=== PATIENT | male | born 1945 | race Caucasian/White ===

== ENCOUNTER 2022-02-13 15:47 | Emergency (ER) | payer MEDICARE, OTHER, SELFPAY ==
--- NOTE | ~2022-02-13 | XR_ITS ---
EXAMINATION: XR abdomen/kub 1V INDICATION: Kidney stones, flank pain TECHNIQUE: Supine views of the abdomen were obtained on 2 radiographs. COMPARISON: CT from today FINDINGS: Two adjacent stones project in the expected location of the distal left ureter which corres pond to those seen on today's CT scan. There are multiple phleboliths of the pelvis. No definite pal tional urolithiasis is identified. The bowel gas pattern is normal. There is mild atelectasis of the visualized lung bases. IMPRESSION: 1. Two adjacent stones projecting in the expected location of the distal left ureter. Reviewed, dictated and finalized at location A. IMPRESSION: 1. Two adjacent stones projecting in the expected location of the distal left u reter.
--- NOTE | ~2022-02-13 | CT_ITS ---
EXAMINATION: CT abdomen pelvis wo con DATE: 02/13/2022 16:49 INDICATION: Left flank pain. TECHNIQUE: Computed tomography (CT) of the abdomen and pelvis was performed without intravenous contr ast. Automated exposure control and iterative reconstruction technique were employed. The dose-length product was 506.90 mGy-cm. COMPARISON: None. FINDINGS: The visualized portions of the lung bases demonstrate mild atelectasis. No pleural effusion . The heart size is normal. No pericardial effusion. There are cysts in the liver measuring up to 2.2 cm. The gallbladder, spleen, pancreas, and adrenal glands are normal. There is a 3 mm stone in right kidney. There is a 3.9 cm cyst in left kidney. There are three 1 mm stones in left kidney. There is mild left hydronephrosis and hydroureter. There are 4 mm and 3 mm stones in distal left ureter. There are bilateral inguinal hernias containing fat. There are no dilated loops of bowel. The appendix is normal. There are no pathologically enlarged lymph nodes. There is no free intraperitoneal fluid. The re is severe lumbar spondylosis. There is mild chronic anterior wedging of L1 vertebral body. IMPRESSION: 1. 4 mm and 3 mm stones in distal left ureter with mild left hydronephrosis and hydroureter. 2. Small nonobstructing bilateral kidney stones. Reviewed, dictated and finalized at location B. IMPRESSION: 1. 4 mm and 3 mm stones in distal left ureter with mild left hydronephrosis an d hydroureter. 2. Small nonobstructing bilateral kidney stones.
[2022-02-13 16:11] VITALS: BP 165/80; PULSE 79; RESP 16; TEMP 36.6; O2SAT 98
[2022-02-13 16:21] LABS: Basophils Percent Auto 0.2 % (0.2-1.2); Eosinophils Percent Auto 0.1 % (0-4.4); Hematocrit 43.9 % (42.0-52.0); Hemoglobin 15.2 g/dL (14.0-18.0); Immature Granulocyte Absolute 0.05 K/mm3 (0.00-0.031); Immature Granulocyte Percent A 0.3 % (0-0.5); Lymphocytes Absolute Auto 1.13 K/mm3 (0.9-3.2); Lymphocytes Percent Auto 7.8 % (18.3-44.2); Mean Corpuscular HGB Conc 34.6 g/dl (32-36); Mean Corpuscular Hemoglobin 32.5 pg (26-34); Mean Platelet Volume 10.1 fl (7.4-10.4); Monocytes Percent Auto 6.8 % (2.6-8.5); Neutrophils Absolute Auto 12.4 K/mm3 (1.3-6.7); Neutrophils Percent Auto 84.8 % (45.5-73.1); Platelet Count Result 234 k/mm3 (150-375); Red Blood Count 4.67 M/mm3 (4.6-6.20); Red Cell Distribution Width 13.5 % (11.5-14.5); White Blood Count 14.6 K/mm3 (4.5-10.0)
[2022-02-13 16:31] LABS: Alanine Aminotransferase 31 U/L (4-50); Albumin Level 4.4 g/dL (3.5-5.1); Alkaline Phosphatase 58 U/L (38-126); Anion Gap 10 mmol/L (8-16); Aspartate Amino Transferase 34 U/L (17-59); Bilirubin,Total 0.7 mg/dL (0.2-1.3); Blood Urea Nitrogen 12 mg/dL (9-20); Calcium 9.3 mg/dL (8.4-10.2); Carbon Dioxide 21 mmol/L (22-30); Chloride 111 mmol/L (98-107); Estimated CRCL calculation 50 ml/min; Estimated Glomerular Filt Rate 54; Glucose 168 mg/dL (65-110); Sodium 142 mmol/L (137-145)
[2022-02-13] MEDS: SODIUM CHLORIDE 0.9% IV 1,000 ML 999 ML IV CONT (16:38)
[2022-02-13 16:39] LABS: Appearance Urine Slightly Cloudy (Clear); Bilirubin Urine Negative (Negative); Blood Urine 3+ (Negative); Color Urine Yellow (Yellow); Glucose Urine UA Negative (Negative); Ketones Urine Negative (Negative); Leukocyte Esterase Ur Negative LEU/UL (Negative); Nitrate Urine Negative (Negative); Protein Urine Trace mg/dL (Negative); Specific Grav Ur >= 1.030 (1.001-1.035); Urobilinogen Urine 0.2 mg/dL (<2.0)
[2022-02-13] MEDS: ONDANSETRON INJ 4 MG/2 ML VIAL IV PUSH (16:40)
[2022-02-13] MEDS: MORPHINE SULFATE (*CRX) 4 MG/ML INJ IV PUSH (16:42)
[2022-02-13 16:49] LABS: Mucus Urine Rare /lpf; RBC Urine 51-75 /hpf (0-2); Squamous Epithelial Cell Urine Rare /hpf (Few)
[2022-02-13 16:50] LABS: Add Urine Microscopic? YES
[2022-02-13 17:19] VITALS: BP 157/89; PULSE 58; RESP 15; O2SAT 98
--- NOTE | 2022-02-13 17:19 | PC.NURSE ---
Pt to XRAY via stretcher at this time, fluids infusing.
[2022-02-13] MEDS: KETOROLAC 15 MG/ML VIAL (*BKC) IV PUSH (17:35)
[2022-02-13] MEDS: TAMSULOSIN HCL 0.4 MG CAPSULE PO (17:35)
--- NOTE | 2022-02-13 18:13 | ED.ABDPAIN ---
HPI - Abdominal Pain General Chief Complaint: Abdominal Pain Stated Complaint: Left Flank Pain Time Seen by Provider: 02/13/22 16:22 Source: RN notes reviewed History of Present Illness HPI narrative: Patient presents emergency room from home for left flank and abdominal pain. Patient states pain began this morning progressively worsening pain is located left flank transfer left side the abdomen described as sharp and stabbing. States been associate with nausea vomiting. He denies any fevers or chills chest pain shortness of breath diarrhea or any other symptoms. States he does have a history of kidney stones before in the past Related Data Home Medications Medication Instructions Recorded Confirmed multivitamin 3 tablet PO DAILY tablet 05/31/21 05/31/21 omega-3 acid ethyl esters 1 gram 2 cap PO DAILY cap 05/31/21 05/31/21 capsule Allergies Allergy/AdvReac Type Severity Reaction Status Date / Time iodine Allergy Unknown Swelling Verified 02/13/22 16:33 Review of Systems Review of Systems: Gen.: Denies fevers or chills ENT: Denies congestion Respiratory: Denies shortness of breath or cough CV: Denies chest pain or palpitations GI: See HPI denies burning, urgency, frequency or hematuria Musculoskeletal: Denies back pain or muscle pain Neuro: Denies numbness, tingling, weakness or focal weakness Skin: Denies rash Except as documented, all other systems reviewed and negative [facility] Past Medical History Medical History (Updated 02/13/22 @ 18:14 by Víctor Pineda DO) Kidney stone Family History Family History (Updated 05/30/21 @ 13:48 by Evelyn Malik CMA) Father Heart disease Other Diabetes mellitus Family history of arthritis Family history of malignant neoplasm Social History Social History Smoking status: Current some day smoker Tobacco type: cigarettes Smoking end date: 10/15/04 Alcohol intake: current Drinks per week: 1 Exam Narrative: APPEARANCE: No acute distress, nontoxic, resting in bed HEENT: Normocephalic, atraumatic, OMM RESPIRATORY: No respiratory distress, clear to auscultation bilaterally with no rhonchi wheezing or rales CARDIOVASCULAR: RRR s murmur ABDOMINAL: Soft nondistended tender palpation left upper quadrant left lower quadrant no tenderness right upper quadrant right lower quadrant no rebound or guarding, left flank tenderness MUSCULOSKELETAl: Moves all extremities. No clubbing, cyanosis or edema. NEURO: Awake and alert. Following commands, speech normal, no focal deficits SKIN:: Warm, dry. Normal Color PSYCHIATRIC: Normal affect/mood Course Course Emergency Course: Patient states he is feeling much better at this time Discussed Dr. Dumas agrees with plan for home with [facility] with follow-up as an outpatient Discussed with patient results of workup and diagnosis. Discussed need for follow-up with primary care, proper use of medication, and reasons to return to the emergency department. Patient understands and agrees to current treatment plan Vital Signs Vital signs: Vital Signs Temperature 97.8 F 02/13/22 16:11 Pulse Rate 79 02/13/22 16:11 Respiratory Rate 16 02/13/22 16:11 Blood Pressure 165/80 H 02/13/22 16:11 Pulse Oximetry 98 02/13/22 16:11 Temperature 97.8 F 02/13/22 16:11 Pulse Rate 58 L 02/13/22 17:19 Respiratory Rate 15 02/13/22 17:19 Blood Pressure 157/89 H 02/13/22 17:19 Pulse Oximetry 98 02/13/22 17:19 MDM - Abdominal Pain Lab Data Result diagrams: 02/13/22 16:15 02/13/22 16:15 Labs: Lab Results 02/13/22 02/13/22 02/13/22 Range/Units 16:15 16:15 16:32 WBC 14.6 H (4.5-10.0) K/mm3 RBC 4.67 (4.6-6.20) M/mm3 Hgb 15.2 (14.0-18.0) g/dL Hct 43.9 (42.0-52.0) % MCV 94.0 (80-100) fl MCH 32.5 (26-34) pg MCHC 34.6 (32-36) g/dl RDW 13.5 (11.5-14.5) % Plt Count 234
[2022-02-13 18:22] VITALS: BP 134/78; PULSE 61; RESP 15; O2SAT 99
== END 2022-02-13 18:29 | disposition home or self-care (01) ==
PROVIDERS: Emergency Provider Emergency Medicine; PCP Family Medicine
DX: N13.2 Hydronephrosis with renal and ureteral calculous obstruction (principal); Z87.442 Personal history of urinary calculi; Z87.891 Personal history of nicotine dependence
CPT/HCPCS: 36415; 74018; 74176; 80053; 81001; 85025; 96361; 96374; 96375; 99284; A9270; J1885; J2270; J2405; J7030

== ENCOUNTER 2022-02-18 07:31 | Outpatient (CLI) | payer MEDICARE, OTHER, SELFPAY | END 2022-02-18 07:32 | disposition home or self-care (01) | LOC: ANHLAB 07:34 | PROVIDERS: PCP Family Medicine; Visit Provider Urology | DX: N20.0 Calculus of kidney (principal); Z01.818 Encounter for other preprocedural examination | CPT/HCPCS: 87086 ==

== ENCOUNTER 2022-02-21 00:13 | Day surgery (SDC) | payer MEDICARE, OTHER, SELFPAY ==
--- NOTE | 2022-02-17 12:31 | PC.NURSE ---
Report to the Outpatient Waiting Room, entrance under the green pavilion located off [facility], at time _1100 on date 02/21/22 . OR Time: _1:00 PM . - You and your visitor will be asked a series of questions to screen for COVID 19 for your protection. - Only one visitor is allowed at this time. - The patient visitor is requested to leave or wait in car when not with patient. - A mask is required within the hospital. Patients may have clear liquids (water, carbonated beverages, clear teas, apple juice) until 3 hours prior to surgery with a maximum of 20 ounces. - No food from midnight until time of surgery - Infants may have breast milk until 4 hours before surgery, formula 6 hours prior to surgery. - Children will be allowed to drink immediately following surgery. If applicable, please bring a bottle or sippy cup to assist with drinking. Juice, water, soda, and popsicles are readily available. For infants on formula, please bring formula the day of surgery. Pacifiers are allowed. Take the following medications with a SIP of water the morning of surgery: ____NONE Medications to discontinue per physician _PT STATES ALL VITAMINS AND SUPPLEMENTS 7 DAYS PRE OP PER DR ESTRELLA Date to take last dose____02/13/22 Please no make-up, nail lao, hairspray, perfume, deodorant, or body powder the day of surgery. No jewelry (including any body piercings) or valuables the day of surgery, leave them at home. Please take a shower or bath the night before, or the morning of, surgery with an antibacterial soap. Wear comfortable, loose fitting clothing. Children are encouraged to wear pajamas. - Jewelry must be removed prior to entering the operating room. Rings and piercings that are not removed may be cut off. - The hospital will not accept responsibility for valuables. - Please leave all valuables, including medications, at home the day of surgery. If you are going home after surgery, a licensed day haul or farm charter bus driver must drive you home. - NO public transportation without another adult. - We recommend that an adult stay with you for 24 hours following discharge. - We also recommend that you do not drive, make important decision, drink alcoholic beverages, or take any drugs that were not prescribed by your health care provider for at least 24 hours after your discharge time. For Pediatric surgeries, we recommend two adults accompany the child home (only one inside the building at this time). Follow any additional instructions given to you from your surgeon. If you or anyone in your household have experienced Covid symptoms in the past week, please notify your surgeon or the nurse liaison at the phone number below for possible testing. Telephone instructions given to __PATIENT and asked if any additional questions and then verbalized understanding. Patient advised to call surgeon office or pre surgery nurse liaison [phone] if any additional questions.
[2022-02-17 12:36] VITALS: BMI 33.4
[2022-02-21] VITALS (9 sets, daily range): BP systolic 128–159; BP diastolic 67–87; PULSE 74–91; RESP 14–18; TEMP 36.3–37; O2SAT 97–100
--- NOTE | ~2022-02-21 | XR_ITS ---
EXAMINATION: XR retrograde pyelo w/stent LT DATE: 02/21/2022 13:00 CDT INDICATION: LEFT SIDE STONE EXTRACT, RETRO/STENT . TECHNIQUE: 6 fluoroscopic images of the right upper quadrant were obtained during retrograde pyelogra phy with stent placement performed by the surgeon. I was not present in the operating room. Fluorosco py exposure time was 12.2 seconds. Cumulative dose 0.05001 mGym2. COMPARISON: None FINDINGS: Fluoroscopic images demonstrate multiple pelvic phleboliths and degenerative change in the lumbar spi ne. No definite renal calcification identified. Guidewire access to the renal pelvis on the left. Samy nt placement with the proximal and distal ends of the stent appropriately located. IMPRESSION: Postoperative documentation of retrograde pyelography. Reviewed, dictated and finalized at location K.
[2022-02-21] MEDS: LACTATED RINGERS 1,000 ML 30 ML IV CONT (11:29)
--- NOTE | 2022-02-21 11:50 | P.PNAN_ITS ---
Anes - Initial Pre Proc Eval Procedure: Operation Date: 02/21/22 13:00 Proposed Procedures p Cystoscopy, Left Ureteroscopy, Left Retrograde Pyelogram, Stone Extraction, Possible Left Stent Placement, Possible Holmium Laser Procedure - Luis Alberto Rodriguez MD Date/Time: 02/21/22 11:50 Surgeon: Luis Alberto Rodriguez MD Pre Op Diagnosis: left ureteral stone Patient Data Age: 76 Gender: M Height: 1.73 m Weight: 98.4 kg Last Vital Signs Temp 36.3 C L 02/21/22 11:04 Pulse 91 02/21/22 11:04 Resp 16 02/21/22 11:04 BP 143/79 H 02/21/22 11:04 Pulse Ox 98 02/21/22 11:04 Allergies Allergy/AdvReac Type Severity Reaction Status Date / Time Iodinated Contrast Media Allergy Severe Swelling Verified 02/21/22 11:22 Home Medications Medication Instructions Recorded Confirmed Type multivitamin 3 tablet PO DAILY tablet 05/31/21 02/21/22 History omega-3 acid ethyl esters 1 gram 2 cap PO DAILY cap 05/31/21 02/21/22 History capsule hydrocodone-acetaminophen 1 tablet PO Q4H PRN #14 tablet 02/13/22 02/21/22 Rx ondansetron 4 mg PO Q6H PRN #10 tablet 02/13/22 02/21/22 Rx tamsulosin [Flomax] 0.4 mg PO DAILY #5 cap 02/13/22 02/21/22 Rx ascorbic acid (vitamin C) 500 mg PO DAILY 02/17/22 02/21/22 History cholecalciferol (vitamin D3) 50 mcg PO DAILY 02/17/22 02/21/22 History cyanocobalamin (vitamin B-12) 1,000 mcg PO DAILY 02/17/22 02/21/22 History tramadol 50 mg PO PRN 02/21/22 02/21/22 History Patient hx anesthesia problems: none Family hx anesthesia problems: none Results Review: All pre-operative results and documents have been reviewed as part of the pre-operative evaluation. FORMERLY [facility], [facility] Past Medical History Medical History (Updated 02/21/22 @ 11:50 by Andre Garcia MD) Kidney stone Obesity Surgical History Surgical History (Updated 02/21/22 @ 11:51 by Andre Garcia MD) Hx of cystoscopy Family History Family History Father Heart disease Other Diabetes mellitus Family history of arthritis Family history of malignant neoplasm Social History Social History Years smoked: 50 Smoking status: Current some day smoker Tobacco type: cigarettes Smoking end date: 10/15/04 Alcohol intake: current Drinks per week: 1 Living arrangements: with family Spiritual care concerns: No Anes - Eval Final PreProcedure Day of Procedure 02/21/22 11:50 Patient weight: obese Heart: regular rate and rhythm Lungs: clear to auscultation Airway: Mallampati scale class II, special considerations poor dentition and other (loose teeth) Neurological: alert and oriented Last oral intake: >/= 8 hours ASA classification: III Emergent: no Anesthetic plan: proceed Anesthesia type and monitoring: general LMA and standard monitoring Results Review: All pre-operative results and documents have been reviewed as part of the pre-operative evaluation. Informed Consent: The patient's anesthetic plan and its attendant risks including dental injury and tooth loss and benefits were discussed with the patient/family/POA. Questions were solicited and answers provided to the sati sfaction of the patient/family/POA.
--- NOTE | 2022-02-21 12:21 | WPDHPUPDATE1 ---
History and Physical Update Update Date/Time: 02/21/22 12:21 History and Physical has been reviewed, including an updated exam of the patient. There are NO changes in the patient's condition. Risks, benefits, and alternatives have been discussed and questions answered. Patient agrees to proceed with procedure. Proceed with cystoscopy, left retrograde pyelogram, left ureteroscopy with stone extraction, possible holmium laser, stent placement
[2022-02-21] MEDS: ceFAZolin 2 GM/D5W 50 ML 2 GM/50 ML BAG IVPB (12:50)
[2022-02-21] MEDS: LIDOCAINE HCL 2% GEL UROJET 10 ML PKG MUCOUS MEM (13:13)
--- NOTE | 2022-02-21 13:17 | P.OP_ITS ---
Procedure Note - Detailed Date of Procedure 02/21/22 Pre-op Diagnosis left ureteral stone Post-op Diagnosis Same Procedure Performed Cyst cystoscopy, left retrograde pyelogram, left ureteroscopy with stone extraction x2, left ureteral stent placement 4.8 Micronesian contour Surgeon Luis Alberto Rodriguez MD Anesthesia General Findings 2 distal ureteral stones 3 mm and 4 mm Description of Procedure Patient is taken to the operative suite and correctly identified. Once anesthesia was obtained was placed in dorsal lithotomy position and prepped and draped usual sterile fashion. Twenty-two Micronesian scope inserted in the bladder direct vision there were no urethral strictures. Prostate has some lateral lobe hypertrophy. Upon entering the bladder is to 3+ trabeculation noted. No tumors visualized at this time. The left orifice was cannulated with a guidewire. 8/10 dilator was used to dilate the orifice. A rigid ureteral scope was then inserted. Two stones were visualized. Using an escape basket we retrieved the stones and sent them for analysis. Pyelogram was then performed. 4.8 Micronesian contour stent was then placed with the proximal end coiled in the left renal pelvis and the distal in the bladder. 2% viscous lidocaine was inserted into the urethra and patient is taken recovery stable condition. He will follow up in a week's time for stent removal. Drains Yes Packing No Pathology Yes Complications No immediate complications Condition Stable Disposition PACU
[2022-02-21] MEDS: oxyCODONE HCL (*CRX) 5 MG TAB IR PO (14:32)
== END 2022-02-21 14:51 | disposition home or self-care (01) ==
PROVIDERS: PCP Family Medicine; Visit Provider Urology
PROC: (CPT 52352; principal; 2022-02-21 13:00)
DX: N20.1 Calculus of ureter (principal); N40.0 Benign prostatic hyperplasia without lower urinary tract symptoms; N32.89 Other specified disorders of bladder; F17.210 Nicotine dependence, cigarettes, uncomplicated; E66.9 Obesity, unspecified; Z68.33 Body mass index [BMI] 33.0-33.9, adult
CPT/HCPCS: 52352; 52332; 74420; 82365; 88300; A9270; C1758; C1769; C2617; J0690; J2405; J2704; J3010; J7120; Q9966

== ENCOUNTER 2024-09-24 10:29 | Outpatient (CLI) | payer MEDICARE, OTHER, SELFPAY ==
[2024-09-24 12:56] LABS: Basophils Percent Auto 0.3 % (0.2-1.2); Eosinophils Absolute Auto 0.1 K/mm3 (0-0.3); Eosinophils Percent Auto 1.3 % (0-4.4); Hematocrit 47.3 % (42.0-52.0); Hemoglobin 15.6 g/dL (14.0-18.0); Immature Granulocyte Absolute 0.04 K/mm3 (0.00-0.031); Immature Granulocyte Percent A 0.5 % (0-0.5); Lymphocytes Absolute Auto 1.96 K/mm3 (0.9-3.2); Mean Corpuscular Hemoglobin 31.6 pg (26-34); Mean Corpuscular Volume 95.7 fl (80-100); Mean Platelet Volume 10.7 fl (7.4-10.4); Monocytes Absolute Auto 0.6 K/mm3 (0.1-0.6); Monocytes Percent Auto 8.2 % (2.6-8.5); Neutrophils Absolute Auto 4.8 K/mm3 (1.3-6.7); Neutrophils Percent Auto 63.7 % (45.5-73.1); Platelet Count Result 219 k/mm3 (150-375); Red Blood Count 4.94 M/mm3 (4.6-6.20); Red Cell Distribution Width 13.7 % (11.5-14.5); White Blood Count 7.6 K/mm3 (4.5-10.0)
[2024-09-24 13:11] LABS: Vitamin D 25 Hydroxy 40.8 ng/mL
[2024-09-24 13:18] LABS: Alanine Aminotransferase 41 U/L (6-50); Albumin Level 4.4 g/dL (3.5-5.1); Alkaline Phosphatase 87 U/L (38-126); Anion Gap 5 mmol/L (4-12); Aspartate Amino Transferase 70 U/L (17-59); Bilirubin,Total 1.2 mg/dL (0.2-1.3); Blood Urea Nitrogen 17 mg/dL (9-20); Calcium 9.6 mg/dL (8.4-10.2); Carbon Dioxide 28 mmol/L (22-30); Chloride 107 mmol/L (98-107); Cholesterol 195 mg/dL (0-200); Estimated Glomerular Filt Rate > 60; Glucose 97 mg/dL (65-110); HDL Direct 42 mg/dL; Sodium 140 mmol/L (137-145); Triglycerides 108 mg/dL (<150)
[2024-09-24 13:25] LABS: Thyroid Stimulating Hormone Reflex 0.991 uIU/mL (0.465-4.68)
[2024-09-24 13:30] LABS: LDL Cholesterol Direct 111 mg/dL
[2024-09-24 13:49] LABS: Prostate Specific Antigen 2.3 ng/mL (< OR = 4.0)
[2024-09-24 18:16] LABS: Hemoglobin A1C 5.5 % (<5.7)
== END 2024-09-24 10:30 | disposition home or self-care (01) ==
LOC: ANHGOSHLAB 10:31
PROVIDERS: PCP Family Medicine; Visit Provider Family Medicine
DX: R73.9 Hyperglycemia, unspecified (principal); R03.0 Elevated blood-pressure reading, without diagnosis of hypertension; Z00.00 Encounter for general adult medical examination without abnormal findings; E78.5 Hyperlipidemia, unspecified; E53.8 Deficiency of other specified B group vitamins; E55.9 Vitamin D deficiency, unspecified; I10 Essential (primary) hypertension; Z12.5 Encounter for screening for malignant neoplasm of prostate
CPT/HCPCS: 36415; 80053; 80061; 82306; 82607; 83036; 84153; 84443; 85025; G0103

== ENCOUNTER 2024-09-24 10:38 | Outpatient (CLI) | payer MEDICARE, OTHER, SELFPAY ==
--- NOTE | ~2024-09-24 | XR_ITS ---
Lumbosacral Spine: AP, oblique, and lateral views Clinical History: Pain Findings: The normal lordotic curve is maintained. The vertebral bodies and posterior elements are i ntact. There is moderate degenerative disc changes throughout the lumbar spine. There is severe facet arthropathy throughout the lumbar spine. The sacroiliac joints are normally outlined. Impression: Advanced degenerative spondylosis, as detailed above. Reviewed, dictated and finalized at location M. PICKLER Impression: Advanced degenerative spondylosis, as detailed above.
--- NOTE | ~2024-09-24 | XR_ITS ---
Right Shoulder Technique: AP and scapular Y views were obtained. Clinical History: Pain Findings: No fracture or dislocation is seen. Osseous alignment is anatomic. The glenohumeral and acr omioclavicular joint spaces are preserved. Soft tissues are unremarkable. Impression: Unremarkable right shoulder radiographs. Reviewed, dictated and finalized at [facility]. ESSOR OF LANGUAGES Impression: Unremarkable right shoulder radiographs.
== END 2024-09-24 10:39 | disposition home or self-care (01) ==
LOC: GOSHIMG 10:39
PROVIDERS: PCP Family Medicine; Visit Provider Family Medicine
DX: M47.896 Other spondylosis, lumbar region (principal); M25.511 Pain in right shoulder
CPT/HCPCS: 72110; 73030

== ENCOUNTER 2024-09-30 10:39 | Outpatient (CLI) | payer MEDICARE, OTHER, SELFPAY ==
--- NOTE | ~2024-09-30 | XR_ITS ---
Left Shoulder Technique: AP and scapular Y views were obtained. Clinical History: Pain Findings: No fracture or dislocation is seen. Osseous alignment is anatomic. The glenohumeral and acr omioclavicular joint spaces are preserved. Soft tissues are unremarkable. Impression: Unremarkable left shoulder radiographs. Reviewed, dictated and finalized at [facility]. FITTER Impression: Unremarkable left shoulder radiographs.
== END 2024-09-30 10:40 | disposition home or self-care (01) ==
LOC: GOSHIMG 10:40
PROVIDERS: PCP Family Medicine; Visit Provider Family Medicine
DX: M25.512 Pain in left shoulder (principal)
CPT/HCPCS: 73030

== ENCOUNTER 2024-10-03 14:54 | Outpatient (CLI) | payer MEDICARE, OTHER, SELFPAY ==
--- NOTE | ~2024-10-03 | CT_ITS ---
EXAMINATION:CT lung screening DATE: 10/03/2024 15:25 INDICATION: Personal history of nicotine dependence. Smoker who quit 14 years ago with 40 pack year h istory. TECHNIQUE: Computed tomography (CT) of the chest was performed without intravenous contrast. Automate d exposure control and iterative reconstruction technique were employed. The dose-length product (DLP ) was 188.98 mGy-cm. COMPARISON: CT abdomen and pelvis 02/13/22 FINDINGS: The lungs demonstrate mild atelectasis. There are subpleural bands in the lower lobes. No p leural effusion. The heart size is normal. There are coronary artery calcifications. No pericardial e ffusion. There is diffuse hepatic steatosis. There is a 2.3 cm cyst in the liver. There is a 5.0 cm c yst in left kidney. There is a 5 mm stone in left kidney. There are cysts mild thoracic spondylosis. There are chronic compression fractures of T6 and T8. IMPRESSION: 1. Lung-RADS category 2: Benign appearance or behavior. Continue annual screening with noncontrast lo w-dose chest CT in 12 months. Reviewed, dictated and finalized at location A. HER IMPRESSION: 1. Lung-RADS category 2: Benign appearance or behavior. Continue annual screeni ng with noncontrast low-dose chest CT in 12 months.
== END 2024-10-03 14:55 | disposition home or self-care (01) ==
PROVIDERS: PCP Family Medicine; Visit Provider Family Medicine
DX: Z12.2 Encounter for screening for malignant neoplasm of respiratory organs (principal); Z87.891 Personal history of nicotine dependence
CPT/HCPCS: 71271

== ENCOUNTER 2024-11-24 09:46 | Outpatient (CLI) | payer MEDICARE, OTHER, SELFPAY ==
[2024-11-24 15:40] LABS: Alanine Aminotransferase 33 U/L (6-50); Albumin Level 4.1 g/dL (3.5-5.1); Alkaline Phosphatase 62 U/L (38-126); Anion Gap 8 mmol/L (4-12); Aspartate Amino Transferase 40 U/L (17-59); Blood Urea Nitrogen 15 mg/dL (9-20); Calcium 9.5 mg/dL (8.4-10.2); Carbon Dioxide 28 mmol/L (22-30); Chloride 106 mmol/L (98-107); Estimated Glomerular Filt Rate > 60; Glucose 90 mg/dL (65-110); Potassium 3.8 mmol/L (3.4-5.0); Sodium 142 mmol/L (137-145)
== END 2024-11-24 09:47 | disposition home or self-care (01) ==
PROVIDERS: PCP Family Medicine; Visit Provider Family Medicine
DX: R74.01 Elevation of levels of liver transaminase levels (principal)
CPT/HCPCS: 36415; 80053

== ENCOUNTER 2025-02-26 14:00 | Outpatient (RCR) | payer MEDICARE, OTHER, SELFPAY ==
--- NOTE | 2024-12-29 15:56 | OPREHPOC ---
Outpatient Therapy Plan of Care This is a Multidisciplinary Plan of Care that may contain components documented by all disciplines (PT, OT, and ST.) PT Problem 1 PT Problem #1 Knowledge Deficit PT Goal 1 Goal / Goal Update Mono with HEP Target Visit 4 PT Goal 2 Goal / Goal Update Report no pain greater than 2/10 for 2 consecutive weeks Target Visit 8 PT Problem 2 PT Problem #2 Impaired Range of Motion PT Goal 1 Goal / Goal Update 1. Improve L shoulder flexion to 170 degrees 2. Improve L shoulder external rotation to 80 degrees to help with dressing and self care Target Visit 8 PT Goal 1 Goal / Goal Update Improve L shoulder flexion strength to 4+/5 to improve lifting ability and stabilization of shoulder Target Visit 8
--- NOTE | 2024-12-29 15:56 | PTOPEVAL1 ---
Assessment and note entered by Kendall Sim, PT Evaluation Information Assessment Status Evaluation ICD-10 Condition Codes (PT) Pain in left shoulder M25.512 Onset December 2023 Subjective Information Reports that he first noted shoulder pain about a year ago when turkey hunting. Pain has increased with mowing and bow shooting. He stopped shooting his bow due to pain and after he stopped the pain did not go away. He has a hard time sleeping and has been often woke up at night. He has found that if he can sleep on his back in his recliner it helps. He does a lot better as long as his arm is straight. Occasionally has pain down to the hands. Reported Pain Level Pain Score 2: Self Report Assessment PT Clinical Summary Patient presents with signs and symptoms consistent with rotator cuff tendonitis and restricted capsular motion. Review of shoulder x- rays are unremarkable with anatomically normal joint surface. Patient will benefit form skilled therapy to address shoulder capsular motion and strength to restore function and reduce pain to improve overall quality of life at this time. Plan of Care Interventions Electrical Stimulation,Manual Therapy,Neuro Re- education,Therapeutic Activities,Therapeutic Exercise PT Services Indicated Yes Treatment Frequency and 2x/week for 8 visits Duration These treatments will address the objective and functional deficits as defined above. The patient will be advanced safely and appropriately in order for the patient to progress towards his/her prior level of function. Additional exercises will be introduced and as well as a comprehensive home exercise program upon discharge, if needed, ?to ensure carryover of functional gains achieved in the clinic. This treatment plan has been reviewed and agreement upon by the patient.
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
[2025-02-02 13:35] VITALS: BP_SYST 160
--- NOTE | 2025-02-02 14:21 | OPREHPOC ---
Outpatient Therapy Plan of Care This is a Multidisciplinary Plan of Care that may contain components documented by all disciplines (PT, OT, and ST.) PT Problem 1 PT Problem #1 Knowledge Deficit PT Goal 1 Goal / Goal Update Post with HEP 02-02-25 progress goal met continue to progress HEP and education Target Visit 13 PT Goal 2 Goal / Goal Update Report no pain greater than 2/10 for 2 consecutive weeks 02-02-25 progress goal not met NEW GOAL: * pt report pain rating at worst of 6/10 Target Visit 13 PT Problem 2 PT Problem #2 Impaired Range of Motion PT Goal 1 Goal / Goal Update 1. Improve L shoulder flexion to 170 degrees 2. Improve L shoulder external rotation to 80 degrees to help with dressing and self care 02-02-25 progress goals not met continue towards Target Visit 13 PT Goal 1 Goal / Goal Update Improve L shoulder flexion strength to 4+/5 to improve lifting ability and stabilization of shoulder 02-02-25 progress goal not met continue towards Target Visit 13
--- NOTE | 2025-02-02 14:21 | PTOPPROG ---
Assessment and note entered by Lanny Velásquez, PT Assessment Status Progress ICD-10 Condition Codes (PT) Pain in left shoulder M25.512 Onset December 2023 Subjective Information shoulder is doing better, have more motion; the injection helped the shoulder pain; have been doing the exercises; Assessment PT Clinical Summary Gary has received 7 PT sessions. Compared to the initial evaluation: pain rating from 1-8/10 to 2-12/10; self assessment with DASH from 17 to 28% limitation in activity level; reports awakening from sleep 2x/night due to pain; education for HEP and posture. L shoulder ROM: active/passive: flexion 95'/160'; abduction 95'/ 160'; IR- reaching behind back, palm of L SIJ/50' and ER- reaching to back of head, palm behind ear/ 45' All shoulder motions increase pain. The goals were partially met. Continue PT treatment. Plan of Care Interventions Electrical Stimulation,Manual Therapy,Neuro Re- education,Therapeutic Activities,Therapeutic Exercise PT Services Indicated Yes Treatment Frequency and 1-2x/wk for 6 visits Duration These treatments will address the objective and functional deficits as defined above. The patient will be advanced safely and appropriately in order for the patient to progress towards his/her prior level of function. Additional exercises will be introduced and as well as a comprehensive home exercise program upon discharge, if needed, ?to ensure carryover of functional gains achieved in the clinic. This treatment plan has been reviewed and agreement upon by the patient.
--- NOTE | 2025-02-24 13:22 | PCPTNOTE ---
Pt had to cancel due to scheduling conflicting with 's appt.
--- NOTE | 2025-03-02 10:53 | PCPTNOTE ---
pt called and canceled today's reeval appt.
--- NOTE | 2025-03-18 09:32 | OPREHPOC ---
Outpatient Therapy Plan of Care This is a Multidisciplinary Plan of Care that may contain components documented by all disciplines (PT, OT, and ST.) PT Problem 1 PT Problem #1 Knowledge Deficit PT Goal 1 Goal / Goal Update [place] with HEP 02-02-25 progress goal met continue to progress HEP and education 03-18-25 d/c goals not addressed Target Visit 13 PT Goal 2 Goal / Goal Update Report no pain greater than 2/10 for 2 consecutive weeks 02-02-25 progress goal not met NEW GOAL: * pt report pain rating at worst of 6/10 03-18-25 d/c goals not addressed Target Visit 13 PT Problem 2 PT Problem #2 Impaired Range of Motion PT Goal 1 Goal / Goal Update 1. Improve L shoulder flexion to 170 degrees 2. Improve L shoulder external rotation to 80 degrees to help with dressing and self care 02-02-25 progress goals not met 03-18-25 d/c goals not addressed continue towards Target Visit 13 PT Goal 1 Goal / Goal Update Improve L shoulder flexion strength to 4+/5 to improve lifting ability and stabilization of shoulder 02-02-25 progress goal not met continue towards 03-18-25 d/c goals not addressed Target Visit 13
--- NOTE | 2025-03-18 09:32 | PTOPDC ---
Assessment and note entered by Lanny Velásquez, PT Assessment Status Discharge - Pt Not Present ICD-10 Condition Codes (PT) Pain in left shoulder M25.512 Onset December 2023 Subjective Information pt called and canceled PT appointments due to having more pain, to have MRI of shoulder. Assessment PT Clinical Summary Gary has received 12 PT sessions. He was having more pain, returned to dr and had an MRI of his shoulder, with reports of rotator cuff tear. Discharge PT services. The goals were not addressed. Plan of Care PT Services Indicated No
== END 2025-03-18 11:57 | disposition home or self-care (01) ==
LOC: ANHPT 14:00
PROVIDERS: PCP Family Medicine; Visit Provider Physician Assistant Surgical
DX: M54.50 Low back pain, unspecified (principal); G89.29 Other chronic pain; M25.512 Pain in left shoulder
CPT/HCPCS: 97014; 97035; 97110; 97140; 97161; G0283

== ENCOUNTER 2025-03-08 08:41 | Outpatient (CLI) | payer MEDICARE, OTHER, SELFPAY ==
--- NOTE | ~2025-03-08 | MR_ITS ---
MRI of the left shoulder Technique: Axial proton-density fat-sat images, coronal proton density fat-sat and T2 fat-sat images, and sagittal T1-weighted and T2 fat-sat images were acquired. Clinical History: Impingement Findings: There is mild to moderate AC joint degenerative change, mild bony productive change about t he joint. Coracoclavicular, coracoacromial, and coracohumeral ligament are intact. There is complete, full-thickness tear involving essentially the entire supraspinatus tendon, with fl uid-filled gap measuring 2.2 x 1.6 cm in extent. Infraspinatus tendon is intact with mild tendinosis. Subscapularis tendon is intact with mild tendinosis. Tendon of long head of the biceps is intact. There is superior labral tear without definite anterior or posterior extension. Inferior glenohumeral ligament is intact. There are small glenohumeral joint effusion with fluid pass ing through the rotator cuff defect into the subacromial/subdeltoid bursa. No degenerative change of the glenohumeral joint. No muscle atrophy or edema. Impression: Complete, full-thickness tear of the supraspinatus tendon, as detailed above. Superior labral tear. Mild to moderate AC joint degenerative change. Reviewed, dictated and finalized at location . Impression: Complete, full-thickness tear of the supraspinatus tendon, as detailed above. Superior labral tear. Mild to moderate AC joint degenerative change.
== END 2025-03-08 08:42 | disposition home or self-care (01) ==
PROVIDERS: PCP Family Medicine; Visit Provider Physician Assistant Surgical
DX: M75.42 Impingement syndrome of left shoulder (principal); M75.122 Complete rotator cuff tear or rupture of left shoulder, not specified as traumatic; S43.432A Superior glenoid labrum lesion of left shoulder, initial encounter; M19.012 Primary osteoarthritis, left shoulder; X58.XXXA Exposure to other specified factors, initial encounter
CPT/HCPCS: 73221

== ENCOUNTER 2025-08-28 10:02 | Outpatient (CLI) | payer MEDICARE, OTHER, SELFPAY ==
--- NOTE | ~2025-08-28 | XR_ITS ---
EXAMINATION: XR foot LT min 3V, 08/28/2025 10:12 OFFICE SERVICES COORDINATOR HISTORY: Pain in left foot x 3 month, no surg, no inj COMPARISON: No comparisons available. Findings: No acute fracture or malalignment. No significant degenerative changes. Soft tissues unremarkable. Impression: No acute fracture or malalignment. Reviewed, dictated and finalized at location P. CE SERVICES COORDINATOR Impression: No acute fracture or malalignment.
== END 2025-08-28 10:03 | disposition home or self-care (01) ==
LOC: GOSHIMG 10:03
PROVIDERS: PCP Nurse Practitioner Family; Visit Provider Nurse Practitioner Family
DX: M79.672 Pain in left foot (principal)
CPT/HCPCS: 73630